=== PATIENT | female | born 1950 | race Caucasian/White ===

== ENCOUNTER 2018-02-20 14:56 | Outpatient (CLI) | payer OTHER ==
[~2018-02-20 14:56] MED LIST: LIPITOR20 MG PO; LOSARTAN POTASS25 MG PO; METFORMIN HCL500 MG PO; NEUROTIN PO; RYBIX ODT50 MG PO
== END 2018-02-20 16:00 | disposition home or self-care (01) ==
LOC: NUCLEAR 14:56
DX: I87.2 Venous insufficiency (chronic) (peripheral) (principal); I73.9 Peripheral vascular disease, unspecified

== ENCOUNTER → 2018-02-21 | Outpatient (CLI) | payer OTHER | END | disposition home or self-care (01) | LOC: NUCLEAR 10:00 | DX: I73.9 Peripheral vascular disease, unspecified (principal) ==

== ENCOUNTER 2018-03-04 13:13 | Outpatient (CLI) | payer OTHER | END 2018-03-04 13:18 | disposition home or self-care (01) | LOC: SONOGRAMA 13:13 → MAMO-SONO 13:15 → SONOGRAMA 13:18 | DX: M25.511 Pain in right shoulder (principal) ==

== ENCOUNTER 2018-09-27 10:55 | Outpatient (CLI) | payer OTHER | END 2018-09-27 11:05 | disposition home or self-care (01) | LOC: RAD 10:55 | DX: M25.552 Pain in left hip (principal); M25.551 Pain in right hip ==

== ENCOUNTER 2018-12-26 14:29 | Outpatient (CLI) | payer OTHER | END 2018-12-26 14:36 | disposition home or self-care (01) | LOC: RAD 14:29 | DX: M23.206 Derangement of unspecified meniscus due to old tear or injury, right knee (principal) ==

== ENCOUNTER → 2019-04-10 | Outpatient (CLI) | payer OTHER | END | disposition home or self-care (01) | LOC: RAD 10:41 | DX: M25.511 Pain in right shoulder (principal); M79.641 Pain in right hand ==

== ENCOUNTER 2019-09-02 09:58 | Outpatient (CLI) | payer OTHER | END 2019-09-02 10:01 | disposition home or self-care (01) | LOC: RAD 09:58 | DX: M25.562 Pain in left knee (principal) ==

== ENCOUNTER 2019-12-03 09:22 | Outpatient (CLI) | payer OTHER | END 2019-12-03 09:24 | disposition home or self-care (01) | LOC: MAMO-SONO 09:22 | DX: Z12.31 Encounter for screening mammogram for malignant neoplasm of breast (principal); Z87.898 Personal history of other specified conditions; N60.39 Fibrosclerosis of unspecified breast; M15.8 Other polyosteoarthritis ==

== ENCOUNTER 2020-09-02 09:08 | Outpatient (CLI) | payer OTHER | END 2020-09-02 09:24 | disposition home or self-care (01) | LOC: NUCLEAR 09:08 | PROVIDERS: ATTEND General Practice | DX: S22.31XA Fracture of one rib, right side, initial encounter for closed fracture (principal) | CPT/HCPCS: 78315; A9503 ==

== ENCOUNTER 2020-09-02 14:34 | Outpatient (CLI) | payer OTHER | END 2020-09-02 14:40 | disposition home or self-care (01) | LOC: RAD 14:34 | PROVIDERS: ATTEND General Practice | DX: R07.89 Other chest pain (principal); S22.31XA Fracture of one rib, right side, initial encounter for closed fracture ==

== ENCOUNTER 2025-01-28 11:23 | Outpatient (CLI) | payer OTHER ==
[~2025-01-28 11:23] MED LIST changes: +MELOXICAM15 MG PO
== END 2025-01-28 11:38 | disposition home or self-care (01) ==
LOC: RAD 11:23
PROVIDERS: ATTEND General Practice
DX: M17.11 Unilateral primary osteoarthritis, right knee (principal); M25.561 Pain in right knee; M79.671 Pain in right foot
CPT/HCPCS: 73721

== ENCOUNTER → 2025-05-14 07:07 | Outpatient (CLI) | payer OTHER | END | disposition home or self-care (01) | LOC: NUCLEAR 07:07 | PROVIDERS: ATTEND General Practice | DX: M46.96 Unspecified inflammatory spondylopathy, lumbar region (principal); M17.11 Unilateral primary osteoarthritis, right knee | CPT/HCPCS: 78315; A9503 ==

== ENCOUNTER 2025-05-25 07:26 | Outpatient (CLI) | payer OTHER | END 2025-05-25 07:30 | disposition home or self-care (01) | LOC: RAD 07:26 | PROVIDERS: ATTEND Orthopaedic Surgery | DX: M25.561 Pain in right knee (principal); M25.562 Pain in left knee ==